=== PATIENT | male | born 1945 | race Asian ===

== ENCOUNTER 2019-07-09 12:31 | Day surgery (SDC) | payer OTHER ==
[~2019-07-09] VITALS: Ht 177.8 cm; Wt 76.0 kg
[~2019-07-09 12:31] MED LIST: ATENOLOL; GLIPIZIDE; LOSARTAN; METFORMIN; SIMVASTATIN
[2019-07-09 13:52] VITALS: Ht 177.8 cm; Wt 76.0 kg
--- NOTE | 2019-07-09 15:01 | PREAC ---
Date/Time of Note Date/Time of Note DATE: 07/09/19 TIME: 15:00 Anesthesia Eval and Record Evaluation Time Pre-Procedure Interview DATE: 07/09/19 TIME: 15:00 Age 74 Sex male NPO: 8 hrs Preoperative diagnosis COLON CA Planned procedure COLONOSCOPY Past Medical History Past Medical History: Includes Cardio: HTN, Dyslipidemia Endo: Diabetes Surgery & Anesthesia Issues No known issue Meds Anticoagulation: No Beta Manny within 24 hr: No Reason Beta Manny not given: Pt. not on B-Manny Reported Medications [Simvastatin] No Conflict Check 07/09/19 [Losartan] No Conflict Check 07/09/19 [Atenolol] No Conflict Check 07/09/19 [Glipizide] No Conflict Check 07/09/19 [Metformin] No Conflict Check 07/09/19 Meds reviewed: Yes Allergies Allergies Reviewed: Yes Labs/Studies Labs Reviewed: Reviewed by anesthesiologist test: N/A Pre-procedure Exam Airway: Adequate mouth opening, Adequate thyromental dist Mallampati: Mallampati II Teeth: Normal Lung: Normal Heart: Normal ASA Physical Status ASA physical status: 2 Emergency: None Planned Anesthetic General/MAC: MAC Planned Pain Management Parenteral pain med Pre-operative Attestations Prior to commencing anesthesia and surgery, the patient was re-evaluated, there was verification of: *The patient's identity *The results of appropriate recent lab work and preoperative vital signs *The above evaluation not changing prior to induction *Anesthetic plan, risk benefits, alternative and complications discussed with patient/family; questions answered; patient/family understands, accepts and wishes to proceed. AMOS VILLALBA Jul 09, 2019 15:01
[2019-07-09 15:20] VITALS: BP 134/72; PULSE 63; RESP 20
[2019-07-09] MEDS ORDERED: PROPOFOL 20 ML ONE (15:40)
[2019-07-09] MEDS ORDERED: LIDOCAINE 2% (SDV) 5 ML INJ ONE (15:40)
--- NOTE | 2019-07-09 16:09 | PAC ---
Date/Time of Note Date/Time of Note DATE: 07/09/19 TIME: 16:09 Post-Anesthesia Notes Post-Anesthesia Note Last documented vital signs Vital Signs Date Temp Pulse Resp B/P (MAP) Pulse Ox O2 O2 Flow FiO2 Time Delivery Rate 07/09/19 98.3 63 20 134/72 96 Room Air 1609 (92) Activity: WNL Respiratory function: WNL Cardiovascular function: WNL Mental status: Baseline Pain reasonably controlled: Yes Hydration appropriate: Yes Nausea/Vomiting absent: Yes AMOS VILLALBA Jul 09, 2019 16:09
[2019-07-09] MEDS ORDERED: LABETALOL HCL 20MG INJ IV PRN (16:30)
[2019-07-09] MEDS ORDERED: ONDANSETRON 4 MG INJ IV PRN (16:30)
[2019-07-09] MEDS ORDERED: EPHEDrine 25 MG/5 ML SYG IV PRN (16:30)
[2019-07-09] MEDS ORDERED: hydrALAzine 20 MG INJ IV PRN (16:30)
[2019-07-09 16:31] VITALS: BP 110/69; RESP 15
== END 2019-07-09 16:57 | disposition home or self-care (01) ==
LOC: GIL 12:31
PROVIDERS: ATTEND Internal Medicine Gastroenterology
DX: C18.7 Malignant neoplasm of sigmoid colon (principal); K64.8 Other hemorrhoids; E11.9 Type 2 diabetes mellitus without complications; I10 Essential (primary) hypertension; E78.00 Pure hypercholesterolemia, unspecified